=== PATIENT | male | born 1980 ===

== ENCOUNTER 2016-11-09 19:59 | Emergency (ER) | payer SELFPAY | END 2016-11-09 21:45 | disposition home or self-care (01) | LOC: D.ER 19:59 | DX: S50.812A Abrasion of left forearm, initial encounter (principal); Y04.1XXA Assault by human bite, initial encounter; Y93.89 Activity, other specified; Y92.019 Unspecified place in single-family (private) house as the place of occurrence of the external cause; L03.114 Cellulitis of left upper limb; I10 Essential (primary) hypertension; F17.200 Nicotine dependence, unspecified, uncomplicated ==